=== PATIENT | male | born 1975 | race Caucasian/White ===

== ENCOUNTER 2017-01-22 22:52 | Emergency (ER) | payer MEDICAID ==
[~2017-01-22] VITALS: Ht 157.5 cm; Wt 56.0 kg
[2017-01-22 22:56] VITALS: Ht 157.5 cm; Wt 56.0 kg
[2017-01-22] MEDS ORDERED: SOD CHLORIDE 0.9% 1,000 ML IV STA (23:17)
[2017-01-22] MEDS ORDERED: ONDANSETRON 4 MG INJ IV STA (23:29)
[2017-01-22] MEDS ORDERED: morphine 4 MG/ML VIAL IV STA (23:29)
[2017-01-22 23:36] LABS: AADO2 Arterial 9.3 mmHg (7.0-24.0); Allen Test ACCEPTAB; Arterial Base Excess -4.2 mmol/L (-3.0-3); Arterial COHb 0.3 % (0.0-3.0); Arterial HCO3 20.1 mmol/L (22.0-26.0); Arterial MetHb 0.3 % (0.0-1.5); Arterial Total Hemglobin 13.7 g/dl (12.0-18.0); MODE ROOM AIR
--- NOTE | 2017-01-23 00:13 | RADRPT ---
PROCEDURE: XR Chest. CLINICAL INDICATION: Hyperglycemia TECHNIQUE: Single AP portable chest. COMPARISON: No prior Chest x-ray FINDINGS: The cardiomediastinal silhouette is within normal limits of size. The lungs are clear without pleur al effusion or focal consolidation. No pneumothorax. The osseous structures and soft tissues are unr emarkable. IMPRESSION: 1. No evidence for active cardiopulmonary disease. RPTAT:AAJJ Physician Angela Date Time Electronically viewed and signed by Ava Sanderson Physician on 01/23/2017 00:12 BEVERLY/
[2017-01-23] MEDS ORDERED: LANT3I SC (02:50)
[2017-01-23] MEDS ORDERED: MTF1000T PO (02:50)
[2017-01-23] MEDS ORDERED: INSU100C SQ (02:50)
[2017-01-23 03:07] LABS: BASOPHILS % 0.4 % (0.0-2.0); EOSINOPHILS # 0.1 10^3/ul (0.0-0.5); EOSINOPHILS % 1.1 % (0.0-7.0); HEMATOCRIT 38.8 % (42.0-52.0); HEMOGLOBIN 14.3 g/dl (14.0-18.0); LYMPHOCYTES # 1.5 10^3/ul (0.8-2.9); LYMPHOCYTES % 27.4 % (15.0-51.0); MEAN CORPUSCULAR HEMOGLOBIN 33.3 pg (29.0-33.0); MEAN CORPUSCULAR HGB CONC 36.9 g/dl (32.0-37.0); MEAN CORPUSCULAR VOLUME 90.4 fl (82.0-101.0); MEAN PLATELET VOLUME 10.3 fl (7.4-10.4); MONOCYTE # 0.5 10^3/ul (0.3-0.9); MONOCYTES % 9.2 % (0.0-11.0); NEUTROPHIL # 3.4 10^3/ul (1.6-7.5); NEUTROPHILS % 61.5 % (39.0-77.0); PLATELET COUNT 321 10^3/UL (140-415); RED BLOOD COUNT 4.29 10^6/ul (4.70-6.10); RED CELL DISTRIBUTION WIDTH 12.6 % (11.5-14.5); WHITE BLOOD COUNT 5.5 10^3/ul (4.8-10.8)
[2017-01-23 04:38] LABS: ALANINE AMINOTRANSFERASE 22 IU/L (13-69); ALBUMIN 3.4 g/dl (3.3-4.9); ALBUMIN/GLOBULIN RATIO 1.17; ALKALINE PHOSPHATASE 141 IU/L (42-121); ANION GAP 14 (8-16); ASPARTATE AMINO TRANSFERASE 14 IU/L (15-46); BILIRUBIN,INDIRECT 0.2 mg/dl (0-1.1); BILIRUBIN,TOTAL 0.2 mg/dl (0.2-1.3); BLOOD UREA NITROGEN 11 mg/dl (7-20); CALCIUM 8.5 mg/dl (8.4-10.2); CARBON DIOXIDE 23 mmol/L (21-31); CHLORIDE 104 mmol/L (97-110); POTASSIUM 3.2 mmol/L (3.5-5.1); SODIUM 138 mmol/L (135-144); TOTAL PROTEIN 6.3 g/dl (6.1-8.1)
[2017-01-23 05:10] LABS: GLUCOSE 411 mg/dl (70-220); TROPONIN-I < 0.012 ng/ml (0.00-0.12)
--- NOTE | 2017-01-23 05:41 | ERD ---
ER Documentation Chief Complaint Date/Time DATE: 01/23/17 TIME: 05:40 Chief Complaint BIB RA FROM HOME FOR UNCRONTROLLED HYPERGLYCEMIA, BS: 584 HPI 1-year-old male brought in by rescue Keshav controlled blood sugar of 584. Patient has history of diabetes mellitus. Says he is mildly nauseous. No abdominal pain. No fevers no chills. No other current complaints. Patient states he is compliant with medications. ROS All systems reviewed and are negative except as per history of present illness. Medications Home Meds Reported Medications Metformin* (Glucophage*) 1,000 Mg Tablet, 1000 MG PO WITH BREAKFAST DINNE, #30 TAB 01/23/17 Insulin Glargine* (Lantus*) 100 Unit/Ml Soln, 30 UNIT SC QHS, #1 VIAL 01/23/17 Insulin Lispro (Humalog) 100 Unit/1 Ml Cartridge, 30 UNIT SQ WITH BREAKFAST DINNE 01/23/17 Allergies Allergies: Coded Allergies: No Known Allergy (Unverified , 01/22/17) PMhx/Soc History of Surgery: Yes (BILAT KNEE REPLACEMENTS) Anesthesia Reaction: No Hx Neurological Disorder: No Hx Respiratory Disorders: No Hx Cardiac Disorders: No Hx Psychiatric Problems: No Hx Miscellaneous Medical Probl: Yes (DM 1) Hx Alcohol Use: No Hx Substance Use: No Hx Tobacco Use: No Smoking Status: Never smoker Physical Exam Vitals Vital Signs Date Time Temp Pulse Resp B/P Pulse Ox O2 Delivery O2 Flow Rate FiO2 01/23/17 03:30 98.8 92 18 120/83 100 Room Air 01/23/17 02:30 98.8 101 18 113/81 93 Room Air 01/23/17 01:30 98.3 80 21 115/81 100 Room Air 01/23/17 00:10 98.5 93 26 117/79 100 Room Air 01/22/17 23:05 98.5 88 18 104/77 100 Room Air 01/22/17 22:56 98.5 91 18 108/77 100 Physical Exam Const: [] Head: Atraumatic Eyes: Normal Conjunctiva ENT: Normal External Ears, Nose and Mouth. Neck: Full range of motion..~ No meningismus. Resp: Clear to auscultation bilaterally Cardio: Regular rate and rhythm, no murmurs Abd: Soft, non tender, non distended. Normal bowel sounds Skin: No petechiae or rashes Back: No midline or flank tenderness Ext: No cyanosis, or edema Neur: Awake and alert Psych: Normal Mood and Affect Result Diagram: 01/23/1722901/23/170 Results 24 hrs Laboratory Tests Test 01/22/17 22:58 01/22/17 23:17 01/23/17 02:30 Bedside Glucose 584mg/dL Blood Gas Specimen Source Blood arterial Arterial Blood Date Drawn 01/22/2017 11:20:40 PM Arterial Blood pH (Temp corrected) 7.380 Arterial Blood pCO2 (Temp correct) 34.8mmhg Arterial Blood pO2 (Temp corrected) 98.8mmHG Arterial Blood HCO3 20.1mmol/L Arterial Blood Base Excess -4.2mmol/L Arterial Blood Oxygen Saturation 97.6mmHG Michael Test ACCEPTAB Arterial Blood Gas Puncture Site Left Radial Arterial Blood Carboxyhemoglobin 0.3% Arterial Blood Methemoglobin 0.3% Blood Gas A-a O2 Differential 9.3mmHg Oxyhemoglobin Percent 97.0% Total Hemoglobin 13.7g/dl Blood Gas Temperature 37.0C Blood Gas Modality ROOM AIR FiO2 21.0% Blood Gas Notified Whom MA Blood Gas Notified Time 01/22/2017 11:36:25 PM White Blood Count 5.510^3/ul Red Blood Count 4.2910^6/ul Hemoglobin 14.3g/dl Hematocrit 38.8% Mean Corpuscular Volume 90.4fl Mean Corpuscular Hemoglobin 33.3pg Mean Corpuscular Hemoglobin Concent 36.9g/dl Red Cell Distribution Width 12.6% Platelet Count 85600^3/UL Mean Platelet Volume 10.3fl Neutrophils % 61.5% Lymphocytes % 27.4% Monocytes % 9.2% Eosinophils % 1.1% Basophils % 0.4% Nucleated Red Blood Cells % 0.0/100WBC Neutrophils # 3.410^3/ul Lymphocytes # 1.510^3/ul Monocytes # 0.510^3/ul Eosinophils # 0.110^3/ul Basophils # 0.010^3/ul Nucleated Red Blood Cells # 0.010^3/ul Sodium Level 138mmol/L Potassium Level 3.2mmol/L Chloride Level 104mmol/L Carbon Dioxide Level 23mmol/L Anion Gap 14 Blood Urea Nitrogen 11mg/dl Creatinine 0.50mg/dl Glucose Level 411mg/dl Lactic Acid Level 0.9mmol/L Calcium Level 8.5mg/dl Total Bilirubin 0.2mg/dl Direct Bilirubin 0.00mg/dl Indirect Bilirubin 0.2mg/dl Aspartate Amino Transf (AST/SGOT) 14IU/L Alanine Aminotransferase (ALT/SGPT) 22IU/L Alkaline Phosphatase 141IU/L Troponin I < 0.012ng/ml Total Protein 6.3g/dl Albumin 3.4g/dl Globulin 2.90g/dl Albumin/Globulin Ratio 1.17 Current Medications Medications (Trade) Dose Ordered Sig/Breanne Route PRN Reason Start Time Stop Time Status Last Admin Dose Admin Sodium Chloride (NS) 1,000 ml @ 1,000 mls/hr Q1H STAT IV 01/22/17 23:17 01/23/17 00:16 DC 01/22/17 23:43 Morphine Sulfate (morphine) 4 mg ONCE STAT IV 01/22/17 23:29 01/22/17 23:30 DC 01/22/17 23:43 Ondansetron HCl (Zofran Inj) 4 mg ONCE STAT IV 01/22/17 23:29 01/22/17 23:30 DC 01/22/17 23:43 Procedures/MDM Medical decision-making: Patient here for severe hypoglycemia. Treated. N evidence of diabetic ketoacidosis. Well-appearing. This stable for outpatient management. Blood sugars have normalized while here in the emergency department. Departure Diagnosis: Primary Impression: Hyperglycemia Condition: Stable Patient Instructions: Hyperglycemia (High Blood Sugar) LAURO LEYVA Jan 23, 2017 05:41
[2017-01-23 06:15] VITALS: BP 110/80; PULSE 90; RESP 17; TEMP 98.3
== END 2017-01-23 06:41 | disposition home or self-care (01) ==
LOC: EDBD 22:52 → E/R 22:52
DX: E10.65 Type 1 diabetes mellitus with hyperglycemia (principal); Z79.4 Long term (current) use of insulin; Z79.84 Long term (current) use of oral hypoglycemic drugs; Z96.653 Presence of artificial knee joint, bilateral
CPT/HCPCS: 36415; 36600; 71010; 80053; 82803; 82962; 83605; 84484; 85025; 93005; 96374; 96375; J2270; J2405; J7030; Z7502